=== PATIENT | male | born 1990 | race Caucasian/White ===

== ENCOUNTER 2018-07-27 15:06 | Emergency (ER) | payer BC ==
--- NOTE | 2018-07-27 15:08 | PDOC ---
Attending Attestation - Resident Resident Name: Dom Emerson - ED Attending Attestation I have performed the following: I have examined & evaluated the patient, The case was reviewed & discussed with the resident, I agree w/resident's findings & plan, Exceptions are as noted - HPI HPI: 07/27/18 15:49 Pt eloped prior to my evaluation. I did not evaluate this patient. - Physicial Exam PE: 07/27/18 15:50 Pt eloped prior to my evaluation. i did not eval this patient. - Medical Decision Making 07/27/18 15:08 I, Dr. Eli Barbosa, DO, attest that this document has been prepared under my direction and personally reviewed by me in its entirety. I further attest, that it accurately reflects all work, treatment, procedures and medical decision -making performed by me. 07/27/18 15:50 pt eloped prior to my evaluation. i did not evaluate this patient.
[2018-07-27 16:06] VITALS: BP 129/77; PULSE 77; TEMP 98.4; BMI 29.0
[2018-07-27] MEDS ORDERED: NAPROXEN 500 MG TABLET (FP) PO ONE (16:33)
--- NOTE | 2018-07-27 16:38 | PDOC ---
History of Present Illness - General Chief Complaint: Pain Stated Complaint: RT KNEE PAIN Time Seen by Provider: 07/27/18 15:07 - History of Present Illness Initial Comments: 07/27/18 16:47 28m presenting with right right sided knee pain over the past few days exacerbated with activity. He states that the pain started after playing a basketball match. Was seen at the Ed yesterday, came back as a swelling started to appear over the right knee. 07/27/18 16:50 Able to ambulate, no pain in any other joints. Past History - Past Medical History Allergies/Adverse Reactions: Allergies Allergy/AdvReac Type Severity Reaction Status Date / Time No Known Allergies Allergy Verified 07/27/18 15:07 Home Medications: Ambulatory Orders Naproxen 500 mg PO BID #20 tablet 07/27/18 COPD: No Other medical history: DENIES - Suicide/Smoking/Psychosocial Hx Smoking History: Never smoked Have you smoked in the past 12 months: No Information on smoking cessation initiated: No Hx Alcohol Use: No Drug/Substance Use Hx: No Review of Systems - Review of Systems Able to Perform ROS?: Yes Constitutional: No: Symptoms Reported HEENTM: No: Symptoms Reported Respiratory: No: Symptoms reported Cardiac (ROS): No: Symptoms Reported ABD/GI: No: Symptoms Reported Musculoskeletal: Yes: See HPI All Other Systems: Reviewed and Negative *Physical Exam - Vital Signs Last Vital Signs Temp Pulse Resp BP Pulse Ox 98.4 F 77 20 129/77 100 07/27/18 15:07 07/27/18 15:07 07/27/18 15:07 07/27/18 15:07 07/27/18 15:07 - Physical Exam General Appearance: Yes: Nourished, Appropriately Dressed. No: Apparent Distress HEENT: positive: EOMI, [place], Normal ENT Inspection Respiratory/Chest: positive: Lungs Clear, Normal Breath Sounds. negative: Chest Tender Cardiovascular: positive: Regular Rhythm, Regular Rate, S1, S2 Musculoskeletal: positive: Other (mo tenderness, negative anterior and drawer signes, POSITIVE effusion, fluctuant, over the superior anteromedial right knee. No warmth, no erythema, non tender. ) Moderate Sedation - Procedure Monitoring Vital Signs: Procedure Monitoring Vital Signs Temperature 98.4 F 07/27/18 15:07 Pulse Rate 77 07/27/18 15:07 Respiratory Rate 20 07/27/18 15:07 Blood Pressure 129/77 07/27/18 15:07 O2 Sat by Pulse Oximetry (%) 100 07/27/18 15:07 Medical Decision Making - Medical Decision Making 07/27/18 16:52 Will do xrays to r/o fractures. Patient declines to receive therapeutic arthrocentesis. Discharged with naproxen prescriptions. *DC/Admit/Observation/Transfer Diagnosis at time of Disposition: Knee effusion, right - Discharge Dispostion Disposition: HOME Condition at time of disposition: Improved Decision to Admit order: No - Prescriptions Prescriptions: Naproxen 500 mg PO BID #20 tablet - Referrals Referrals: Bart Zambrano MD [Staff Physician] - - Patient Instructions Printed Discharge Instructions: DI for Knee Effusion Additional Instructions: Follow up with Dr. Zambrano at the office. Come back to the ED for any new, worsening or concerning symptoms. - Post Discharge Activity
[2018-07-27] MEDS ORDERED: NAPROXEN 500 MG TABLET (FP) ONE (16:46)
== END 2018-07-27 16:49 | disposition home or self-care (01) ==
LOC: FER 15:06 → EDSEX 15:06 → FER 16:49
DX: M25.461 Effusion, right knee (principal); X58.XXXA Exposure to other specified factors, initial encounter; Y93.89 Activity, other specified; Y92.89 Other specified places as the place of occurrence of the external cause
CPT/HCPCS: 73562-TC-RT-FY; 99283-25